=== PATIENT | male | born 1985 | race Hispanic/Latino ===

== ENCOUNTER 2024-12-23 01:55 | Emergency (ER) | payer SELFPAY ==
[~2024-12-23] VITALS: Ht 167.6 cm; Wt 99.8 kg
[2024-12-23 02:03] VITALS: BP 159/109; PULSE 97; RESP 18; TEMP 97.6; O2SAT 96
[2024-12-23] MEDS ORDERED: LACTULOSE ONE (02:37)
[2024-12-23] MEDS ORDERED: DULCOLAX RC ONE (02:38)
[2024-12-23 02:43] VITALS: BP 144/99; PULSE 96; RESP 18; TEMP 97.6; O2SAT 96
[2024-12-23] MEDS: LACTULOSE PO SCH (02:43)
[2024-12-23] MEDS: DULCOLAX RC ONE (02:43)
== END 2024-12-23 02:50 | disposition home or self-care (01) ==
LOC: ER 01:55
DX: K59.00 Constipation, unspecified (principal)
CPT/HCPCS: 99283